=== PATIENT | female | born 1930 | race Caucasian/White ===

== ENCOUNTER → 2018-01-14 | Outpatient (CLI) | payer MEDICARE, OTHER ==
--- NOTE | 2018-01-14 11:07 | Diagnostic Imaging Report ---
PROCEDURE:US RETROPERITONEAL ( KIDNEY ) AND PELVIC ULTRASOUND (BLADDER) COMPARISON:None. INDICATIONS:Not provided. TECHNIQUE:Ultrasound examination was performed of the kidneys and bladder. FINDINGS: Right kidney measures 11.1 x 3.9 x 3.3 cm. Right renal cortex measures 1.3 cm. Renal echogenicity is unremarkable. No evidence of stone or mass. There is very mild right hydronephrosis with prominence of the renal pelvis. Left kidney measures 10.8 x 4 x 5.8 cm. Left renal cortex measures 1.3 cm. Renal echogenicity is unremarkable. No evidence of stone, hydronephrosis, or mass. The bladder appears unremarkable. Bilateral bladder jets are noted. CONCLUSION: Mild right hydronephrosis without evidence of stone. Normal ureteral jets suggesting patency of the ureters. DICTATED BY: CHARLI PISANO M.D. ON 01/14/2018 AT 11:16 ELECTRONICALLY APPROVED BY: CHARLI PISANO M.D. ON 01/14/2018 AT 11:16
--- NOTE | 2018-01-14 11:10 | Diagnostic Imaging Report ---
PROCEDURE:URINARY BLADDER ULTRASOUND COMPARISON:None. INDICATIONS:HEMATURIA TECHNIQUE:Sonography was performed of the clinically requested area of interest. FINDINGS: The bladder appears unremarkable. No evidence of stone or mass. Bilateral ureteral jets are noted. CONCLUSION: Unremarkable bladder ultrasound. Please refer to the report from the concurrently performed renal ultrasound for further details. Dictated by: CHARLI PISANO M.D. on 01/14/2018 at 11:18 Electronically approved by: CHARLI PISANO M.D. on 01/14/2018 at 11:18
== END ==
LOC: US 08:28
PROVIDERS: ATTEND Family Medicine
DX: R31.9 Hematuria, unspecified (principal)
CPT/HCPCS: 76770; 76857

== ENCOUNTER → 2018-01-28 | Outpatient (CLI) | payer MEDICARE, OTHER ==
--- NOTE | 2018-01-28 11:11 | Diagnostic Imaging Report ---
EXAMINATION: CT of the abdomen and pelvis without contrast. TECHNIQUE: Spiral CT images of the abdomen and pelvis were performed from the lung bases to the lesser trochanters. No intravenous contrast was given per renal stone protocol. Coronal and sagittal reformatted images were obtained. COMPARISON: None. CLINICAL HISTORY:Hydronephrosis DISCUSSION: ABSENCE OF INTRAVENOUS CONTRAST DECREASES SENSITIVITY FOR DETECTION OF FOCAL LESIONS AND VASCULAR PATHOLOGY. ABDOMEN/PELVIS: LOWER THORAX: 5-6 mm nodule in the medial segment of the left lower lobe. Calcified granuloma within the lateral segment of the right lower lobe. 4 mm nodule in the posterior basal segment of the right lower lobe. 3 mm nodule in the medial basal segment of the right lower lobe. HEPATOBILIARY:Calcified granuloma in segment 3. Calcified granuloma in segment 6. Subcentimeter hypoattenuating lesion in segment 5, too small to further characterize though likely to represent a small cyst. Gallbladder is unremarkable. SPLEEN: No splenomegaly. Multiple calcified granulomata. PANCREAS: No focal masses or ductal dilatation. ADRENALS: No adrenal nodules. KIDNEYS/URETERS: Punctate nonobstructing calculus in the right interpolar collecting system versus branch atherosclerotic renal artery calcification. No hydronephrosis. No gross renal mass lesion. PELVIC ORGANS/BLADDER: Limited evaluation of the pelvic organs secondary to extensive beam hardening artifact from right hip prosthesis. Uterus is not identified and has presumably been resected. No adnexal mass. PERITONEUM/RETROPERITONEUM: No ascites. No pneumoperitoneum. LYMPH NODES: No pelvic sidewall, retroperitoneal, or mesenteric lymphadenopathy. VESSELS: Limited evaluation without intravenous contrast. Atherosclerotic calcification of the abdominal aorta and iliac arterial systems without aneurysmal dilatation. 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 GI TRACT: There are innumerable diverticula along the course of the sigmoid colon, without wall thickening or adjacent inflammatory change. Gas and fecal material are noted throughout the large bowel, along with diverticula of lesser concentration along the proximal large bowel. The appendix is normal. There is no small bowel dilatation to suggest obstruction. BONES AND SOFT TISSUES: Status post total right hip replacement with appropriately positioned acetabular and femoral components. No acute osseous abnormalities. Mild degenerative anterolisthesis of L4 over L5. Multiple dystrophic soft tissue calcifications. Otherwise no focal soft tissue abnormalities. IMPRESSION: No acute intra-abdominal or pelvic CT abnormalities. Mild right hydronephrosis described on the comparison ultrasound 01/14/2018 has resolved. Questionable nonobstructing right renal calculus versus atherosclerotic calcification of a branch renal artery. 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 CT angiography of the abdomen is suggested in one year to assess for stability. Extensive large bowel diverticulosis without findings of diverticulitis. Scattered calcified and noncalcified pulmonary nodules measuring up to 6 mm. Follow-up CT scan of the chest without contrast is suggested in 3-6 months per [employer] 2017 guidelines. Signed by: Dr. Zev Sheppard M.D. on 01/28/2018 11:08 AM
== END ==
LOC: CT 09:35
PROVIDERS: ATTEND Family Medicine
DX: N13.2 Hydronephrosis with renal and ureteral calculous obstruction (principal)
CPT/HCPCS: 74176